=== PATIENT | male | born 1990 | race Caucasian/White ===

== ENCOUNTER 2021-12-08 17:31 | Emergency (ER) | payer BC ==
[~2021-12-08] VITALS: Ht 172 cm; Wt 56.0 kg
[2021-12-08 18:21] VITALS: BP 123/85
--- NOTE | 2021-12-08 18:26 | ED Integumentary General ---
General Chief Complaint: Laceration Stated Complaint: LIP LAC Nursing Triage Note: PT REPORTS HE WAS CHANGING A TIRE AND THE TIRE MACHINE LET LOOSE AND HIT HIM IN THE RIGHT UPPER LIP AREA. PT HAS ABOUT A 1.5CM LACERATION, OPEN TO AIR AND WELL-APPROXIMATED. BLEEDING IS CONTROLLED. Source: patient History of Present Illness Date Seen by Provider: December 08, 2021 Time Seen by Provider: 17:38 Initial Comments 31-year-old male presenting with laceration to his lips. He states he was changing a tire at home and when he went to put the machine in the back of his truck the arm swung back and hit him in the mouth. He has a 1.5 cm laceration to the upper lip. He has an abrasion to the lower lip. There is nothing that penetrated inside his mouth. He states he is up-to-date on his tetanus and felt like the device was cleaned and had recently been painted so it was not a tetanus risk. He has had his teeth removed previously and was not wearing his dentures when the accident happened. He has mild pain to the upper lip. Since area keeps opening when he talks or moves his left he came in to be seen to have it fixed. Timing/Duration: just prior to arrival Severity: moderate Location: face (Right side of his mouth on the upper lip laceration and abrasion to the lower lip) Associated Symptoms: No blisters, No change in skin texture, No edema, No fever, No flushing, No headache, No hives, No jaundice, No malaise, No nasal congestion, No numbness, No pallor, No paresthesia, No petechiae, No rash, No sore throat; swelling/mass/lumps (Mild swelling to his lips from the injury); No tingling Allergies and Home Medications Allergies Coded Allergies: No Known Drug Allergies (Unverified , 12/08/21) Patient Home Medication List Home Medication List Reviewed: Yes Review of Systems Review of Systems Constitutional: No chills, No dizziness, No fever EENTM: mouth pain (Mild pain to the right side of his mouth on the lips), mouth swelling (Mild swelling to the right side of his lips); No ear discharge, No hearing loss, No ear pain, No vision loss, No epistaxis, No nose congestion Respiratory: no symptoms reported Cardiovascular: no symptoms reported Gastrointestinal: no symptoms reported Genitourinary: no symptoms reported Musculoskeletal: no symptoms reported Skin: see HPI Psychiatric/Neurological: No Symptoms Reported Past [id number] Hx Patient Social History Tobacco Use?: No Use of E-Cig and/or Vaping dev: No Substance use?: No Alcohol Use?: No Pt feels they are or have been: No Physical Exam Vital Signs Vital Signs - First Documented 12/08/21 17:35 Temp 37.0 Pulse 81 Resp 18 B/P (MAP) 123/85 (98) Pulse Ox 100 O2 Delivery Room Air Capillary Refill : Less Than 3 Seconds General Appearance: WD/WN, no apparent distress HEENT: PERRL/EOMI, normal ENT inspection, TMs normal, pharynx normal, other (1.5 cm laceration to the right side of his upper lip. There is abrasion to the lower lip on the right side. Bleeding is controlled. 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, no motor/sensory deficits, alert, normal mood/affect, oriented x 3 Skin: warm/dry Skin Problem Location: face (Right side of his lips) Skin Problem Character: tenderness, other (Laceration to the right upper lip of 1.5 cm she had abrasion to right lower lip) Procedures/Interventions Wound Location: Face (Right upper lip) Wound Length (cm): 1.5 Wound's Depth, Shape: linear, sub Q Wound Explored: clean Anesthesia: 1% Lidocaine Volume Anesthetic (ccs): 4 Suture: Ethlion Suture Size: 5-0 Number of Sutures: 3 Layer Closure?: 1 Progress After obtaining verbal informed consent from the patient the wound was anesthetized with 1% plain lidocaine. Then using chlorhexidine scrub soap and sterile water the wound was cleaned. 5-0 Ethilon suture was used to place 3 simple interrupted stitches to approximate the wound edges. Patient tolerated procedure well without any immediate complication. Counseled to have stitches removed in 5 to 7 days. Progress/Results/Core Measures Results/Orders Vital Signs/I&O 12/08/21 12/08/21 17:35 18:21 Temp 37.0 37.0 Pulse 81 81 Resp 18 18 B/P (MAP) 123/85 (98) 123/85 Pulse Ox 100 100 O2 Delivery Room Air Room Air Blood Pressure Mean: 98 Progress Progress Note : Progress Note Verbally consented for placement of stitches for upper lip laceration. Counseled on follow-up and return precautions. Patient tolerated procedure well without any immediate complication. Departure Impression Primary Impression: Laceration of skin of lip Qualified Codes: S01.511A - Laceration without foreign body of lip, initial encounter Additional Impressions: Abrasion of vermilion border of lower lip Qualified Codes: S00.511A - Abrasion of lip, initial encounter Contusion of mouth Disposition: HOME, SELF-CARE Condition: Stable Departure-Patient Inst. Decision time for Depature: 18:24 Referrals: NO,LOCAL PHYSICIAN (PCP) Primary Care Physician [facility] call [phone] to establish a primary care provider Patient Instructions: Laceration Repair With Stitches ED, Minor Contusion ED Add. Discharge Instructions: Keep wound clean and dry. Avoid swimming or having the lip wet longer than it takes to clean the area. Stitches out next Tuesday or Tuesday. You may return to the Emergency Department to have these removed. You may apply ice 10-15 minutes every few hours as needed for pain and swelling to your lips. Apply antibiotic ointment 2-3 times a day and as needed to help keep the wound from scabbing or getting infected All discharge instructions reviewed with patient and/or family. Voiced understanding. ALICIA HALL MD December 08, 2021 18:26
== END 2021-12-08 18:32 | disposition home or self-care (01) ==
LOC: ER FS 17:33
DX: S01.511A Laceration without foreign body of lip, initial encounter (principal); W20.8XXA Other cause of strike by thrown, projected or falling object, initial encounter; Y92.009 Unspecified place in unspecified non-institutional (private) residence as the place of occurrence of the external cause; Y93.89 Activity, other specified
CPT/HCPCS: 12011